=== PATIENT | female | born 1955 | race Caucasian/White ===

== ENCOUNTER 2022-04-27 11:08 | Outpatient (CLI) | payer BC | END 2022-04-27 11:09 | disposition home or self-care (01) | LOC: CSHMAMMO 11:08 | PROVIDERS: ATTEND Family Medicine | DX: Z12.31 Encounter for screening mammogram for malignant neoplasm of breast (principal) | CPT/HCPCS: 77063; 77067 ==

== ENCOUNTER 2023-02-27 10:09 | Outpatient (CLI) | payer MEDICARE | END 2023-02-27 10:10 | disposition home or self-care (01) | LOC: CSHMAMMO 10:09 | PROVIDERS: ATTEND Internal Medicine Rheumatology | DX: Z13.820 Encounter for screening for osteoporosis (principal); M06.09 Rheumatoid arthritis without rheumatoid factor, multiple sites; M12.811 Other specific arthropathies, not elsewhere classified, right shoulder | CPT/HCPCS: 77080 ==

== ENCOUNTER 2023-06-14 12:23 | Outpatient (CLI) | payer MEDICARE | END 2023-06-14 12:24 | disposition home or self-care (01) | LOC: CSHMAMMO 12:23 | PROVIDERS: ATTEND Family Medicine | DX: Z12.31 Encounter for screening mammogram for malignant neoplasm of breast (principal); Z80.3 Family history of malignant neoplasm of breast | CPT/HCPCS: 77063; 77067 ==

== ENCOUNTER 2024-05-18 10:03 | Outpatient (CLI) | payer MEDICARE ==
[2024-05-18 11:23] LABS: Hematocrit 39.8 % (34.9-44.5); Hemoglobin 13.2 g/dL (12.0-15.5)
[2024-05-18 13:11] LABS: Anion Gap 15 mmol/L (10-20); BUN (Urea Nitrogen) 15 mg/dL (9.8-20.1); Calc. Creatinine Clearance 0 mL/min (70-130); Calcium 9.9 mg/dL (7.8-10.44); Carbon Dioxide 29 mmol/L (23-31); Chloride 94 mmol/L (98-107); Estimated GFR 82; Glucose 102 mg/dL (80-115); Potassium 3.1 mmol/L (3.5-5.1); Sodium 135 mmol/L (136-145)
== END 2024-05-18 10:04 | disposition home or self-care (01) ==
LOC: CSHLAB 10:03
PROVIDERS: ATTEND Otolaryngology Plastic Surgery within the Head & Neck
DX: Z01.818 Encounter for other preprocedural examination (principal); K14.8 Other diseases of tongue
CPT/HCPCS: 80048; 85014; 85018; 93005; 93010

== ENCOUNTER 2024-05-28 07:21 | Day surgery (SDC) | payer MEDICARE ==
[2024-05-18 10:32] VITALS: BMI 29.8
[2024-05-28] MEDS ORDERED: fentaNYL 50 mcg/mL 1 mL Vial ONE ×4 (09:36→11:01)
[2024-05-28] MEDS ORDERED: Midazolam HCl 2 mg/2 ml Vial ONE (09:36)
[2024-05-28] MEDS ORDERED: Ondansetron PF 4 MG/2 ML Vial ONE (09:36)
[2024-05-28] MEDS ORDERED: SUGAMMADEX SODIUM 200 MG/2 ML VIAL ONE (09:36)
[2024-05-28] MEDS ORDERED: Glycopyrrolate 0.2 MG/ML 5 ML SYRINGE ONE (09:36)
[2024-05-28] MEDS ORDERED: Dexamethasone 20 MG/5 ML VIAL ONE ×2 (09:36→10:04)
[2024-05-28] MEDS ORDERED: PROPOFOL 20 ML ONE (09:36)
[2024-05-28] MEDS ORDERED: Rocuronium Bromide 10 MG/ML (10ML VIAL) ONE (09:36)
[2024-05-28] MEDS ORDERED: CEFAZOLIN 2 GM VIAL ONE (09:44)
[2024-05-28] MEDS ORDERED: PHENYLEPHRINE-NS 100 MCG/ML 10 ML SYRINGE ONE (10:13)
[2024-05-28] MEDS ORDERED: Lidocaine 1% w/Epinephrine 1:100K 20 ML VIAL ONE (10:24)
[2024-05-28] MEDS ORDERED: Hydrocodone-Acetamin 15 ML UDCUP ONE (12:10)
== END 2024-05-28 12:40 | disposition home or self-care (01) ==
LOC: CSHSDC 07:21
PROVIDERS: ATTEND Otolaryngology Plastic Surgery within the Head & Neck
PROC: 0CB70ZX Excision of Tongue, Open Approach, Diagnostic (ICD-10-PCS; principal; 2024-05-28)
DX: K14.0 Glossitis (principal); I10 Essential (primary) hypertension; M06.9 Rheumatoid arthritis, unspecified; F32.A Depression, unspecified; F41.9 Anxiety disorder, unspecified; E66.9 Obesity, unspecified; Z68.29 Body mass index [BMI] 29.0-29.9, adult; Z90.710 Acquired absence of both cervix and uterus; Z90.49 Acquired absence of other specified parts of digestive tract; Z79.899 Other long term (current) drug therapy
CPT/HCPCS: 41113; J1100; J2250; J2405; J2704; J3010; 88184; 88305; 88312; 88331; 88332; 88341; 88342

== ENCOUNTER 2024-07-01 08:55 | Observation (INO) | payer MEDICARE ==
[2024-07-01 10:33] LABS: #Basophils Less than 0.03 10x3/uL (0.0-0.2); #Eosinophils 0.08 10x3/uL (0.0-0.5); #Monocytes 0.46 10x3/uL (0.0-1.1); #Neutrophils 1.94 10x3/uL (1.5-8.4); %Basophils 0.6 % (0.0-2.0); %Eosinophils 2.2 % (0.0-6.0); %Lymphocytes 30.1 % (18.0-47.0); %Monocytes 12.8 % (0.0-10.0); Hematocrit 32.7 % (34.9-44.5); Hemoglobin 10.8 g/dL (12.0-15.5); Mean Corpuscular Hemoglobin 29.5 pg (27.0-33.0); Mean Corpuscular Volume 89.3 fL (81.6-98.3); Mean Platelet Volume 9.3 fL (7.4-10.4); Platelet Count 136 10x3/uL (150-450); RBC Distribution Width 15.6 % (11.5-14.5); Red Blood Cell (RBC) Count 3.66 10x6/uL (3.90-5.03); White Blood Cell (WBC) Count 3.59 10x3/uL (3.5-10.5)
[2024-07-01 10:44] LABS: PTT 25.4 sec (22.0-33.0); Prothrombin Time 11.2 sec (9.5-12.1)
[2024-07-01 10:47] LABS: Alkaline Phosphatase 66 U/L (40-110); Anion Gap 10 mmol/L (10-20); BUN (Urea Nitrogen) 9 mg/dL (9.8-20.1); Calcium 8.8 mg/dL (7.8-10.44); Carbon Dioxide 26 mmol/L (23-31); Chloride 104 mmol/L (98-107); Globulin 3.9 g/dL (2.4-3.5); Glucose 94 mg/dL (80-115); Potassium 3.4 mmol/L (3.5-5.1); Sodium 137 mmol/L (136-145)
[2024-07-01 11:11] LABS: ALT (SGPT) 7 U/L (Less than 34); AST (SGOT) 19 U/L (11-34); Albumin 2.4 g/dL (3.1-4.5); Bilirubin, Total 0.6 mg/dL (0.3-1.2); Calc. Creatinine Clearance 0 mL/min (70-130); Estimated GFR 100; Protein, Total 6.3 g/dL (5.8-8.1)
[2024-07-01] MEDS ORDERED: Enoxaparin 80 MG (0.8 mL) SYRINGE ONE (12:32)
[2024-07-01] MEDS ORDERED: Calcium Carbonate 500 MG ChewTAB PO PRN (13:09)
[2024-07-01] MEDS ORDERED: Senokot S 8.6-50 MG TAB PO PRN (13:09)
[2024-07-01] MEDS ORDERED: Ondansetron PF 4 MG/2 ML Vial IVP PRN (13:09)
[2024-07-01 13:37] VITALS: BMI 25.8
[2024-07-01] MEDS: Potassium Chloride 20 MEQ TAB PO SCH (14:03)
[2024-07-01 14:49] LABS: INR-International Normal Ratio 1.1; PTT 28.8 sec (22.0-33.0); Prothrombin Time 11.7 sec (9.5-12.1)
[2024-07-01] MEDS ORDERED: Lidocaine Viscous Sol 2% 15 ml UD Cup SSP PRN (14:50)
[2024-07-01 15:25] LABS: D-Dimer Test 5.78 mcg/mL (0.19-0.50)
[2024-07-01] MEDS: FLU (Fluad Triv) TS24-25 (65UP)/MF59C/PF 45 MCG/0.5 ML Syringe IM ONE (15:33)
[2024-07-01] MEDS: Acetaminophen 325 MG TAB PO PRN (17:00)
[2024-07-01] MEDS: Enoxaparin 80 MG (0.8 mL) SYRINGE SC SCH (20:24)
[2024-07-02 05:40] LABS: #Basophils Less than 0.03 10x3/uL (0.0-0.2); #Eosinophils 0.07 10x3/uL (0.0-0.5); #Monocytes 0.45 10x3/uL (0.0-1.1); #Neutrophils 1.18 10x3/uL (1.5-8.4); %Basophils 0.3 % (0.0-2.0); %Eosinophils 2.3 % (0.0-6.0); %Lymphocytes 43.2 % (18.0-47.0); %Monocytes 14.9 % (0.0-10.0); Hematocrit 28.9 % (34.9-44.5); Hemoglobin 9.7 g/dL (12.0-15.5); Mean Corpuscular HGB CONC 33.6 g/dL (32.0-36.0); Mean Corpuscular Volume 89.5 fL (81.6-98.3); Mean Platelet Volume 9.3 fL (7.4-10.4); Platelet Count 129 10x3/uL (150-450); RBC Distribution Width 15.6 % (11.5-14.5); Red Blood Cell (RBC) Count 3.23 10x6/uL (3.90-5.03); White Blood Cell (WBC) Count 3.03 10x3/uL (3.5-10.5)
[2024-07-02 05:55] LABS: ALT (SGPT) Less than 7 U/L (Less than 34); AST (SGOT) 19 U/L (11-34); Alkaline Phosphatase 58 U/L (40-110); Anion Gap 13 mmol/L (10-20); BUN (Urea Nitrogen) 8 mg/dL (9.8-20.1); Bilirubin, Total 0.5 mg/dL (0.3-1.2); Calc. Creatinine Clearance 118 mL/min (70-130); Calcium 8.8 mg/dL (7.8-10.44); Carbon Dioxide 23 mmol/L (23-31); Chloride 106 mmol/L (98-107); Estimated GFR 101; Globulin 3.4 g/dL (2.4-3.5); Glucose 90 mg/dL (80-115); Potassium 3.6 mmol/L (3.5-5.1); Protein, Total 5.4 g/dL (5.8-8.1); Sodium 138 mmol/L (136-145)
[2024-07-02] MEDS ORDERED: Hydroxychloroquine Sulfate 200 MG TAB PO SCH ×2 (09:00)
[2024-07-02] MEDS: Sertraline 100 MG TAB PO SCH (10:03)
[2024-07-02] MEDS: Leflunomide 10 mg Tablet PO SCH (10:03)
[2024-07-02] MEDS: Losartan 25 MG TAB PO SCH (10:03)
[2024-07-02] MEDS: Chlorthalidone 25 MG TAB PO SCH (10:04)
[2024-07-02 12:22] VITALS: BP 119/72; TEMP 98.4
[2024-07-07 12:36] LABS: Cardiolipin IgA Ab 2.4 APL-U/mL (<14 Negative); Cardiolipin IgG Ab 1.1 GPL-U/mL (<10 Negative); Cardiolipin IgM Ab 0.9 MPL-U/mL (<10 Negative); EliA APS New Method **** NEW METHOD ****
== END 2024-07-02 13:32 | disposition home or self-care (01) ==
LOC: CSHERS 08:55 → SUATTDRO 08:55 → CSHTELE 13:08
PROVIDERS: ADMIT Internal Medicine; ATTEND Internal Medicine
DX: I82.402 Acute embolism and thrombosis of unspecified deep veins of left lower extremity (principal); I10 Essential (primary) hypertension; M06.9 Rheumatoid arthritis, unspecified; F39 Unspecified mood [affective] disorder; Z79.899 Other long term (current) drug therapy
CPT/HCPCS: 80053 ×2; 83090; 85025 ×2; 85300; 85303; 85306; 85307; 85598; 85610 ×2; 85730 ×2; 86147; 86850; 86900; 86901; 93971; 96372 ×3; 99284; G0378 ×3; J1650 ×2; 36415